=== PATIENT | female | born 1965 | race African-American/Black ===

== ENCOUNTER 2023-12-30 08:44 | Outpatient (REF) | payer OTHER, SELFPAY ==
--- NOTE | 2023-12-30 08:56 | EMG_ITS ---
Right tibial and peroneal motor studies were performed. Right superficial peroneal, sural and medial and lateral plantars sensory studies were performed. Tibial H-reflex was obtained and paraspinal muscles were tested with a needle. H-reflex was not elicitable, probably due to obesity and technical difficulties. IMPRESSION: 1. 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 2. 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 MD ELAINE Kaplan/RHETT / [id number]
== END 2023-12-30 08:45 | disposition home or self-care (01) ==
LOC: HO.NEURO 08:44
PROVIDERS: PCP Hospitalist; Visit Provider Nurse Practitioner Family
DX: M17.11 Unilateral primary osteoarthritis, right knee (principal); M54.16 Radiculopathy, lumbar region
CPT/HCPCS: 95886; 95910